=== PATIENT | male | born 1950 | race African-American/Black ===

== ENCOUNTER 2021-05-28 13:28 | Emergency (ER) | payer MEDICARE, OTHER ==
[~2021-05-28] VITALS: Ht 190.5 cm; Wt 172.0 kg
[~2021-05-28 13:28] MED LIST: ALLO300T PO; AMIO200T6 PO; APIX5TAB PO; FURO-69 PO; GLIP10TA13 PO; MAGN400C PO; METO-239 PO; POTASSIUM CHLO10 ME1 PO; PRAV80TA2 PO; SPIR25TA PO
[2021-05-28] MEDS ORDERED: DIPH,PERTUSS(ACELL),TET VAC/PF 0.5 ML SYRINGE. VAX IM ONE ×2 (16:45→17:00)
--- NOTE | 2021-05-28 16:59 | PHYS DOC ---
Past Medical History Past Medical History: A-Fib, CHF, Diabetes-Type II Past Surgical History: No Surgical History, Other Additional Past Surgical Histo: cadiac cath Smoking Status: Never Smoker Alcohol Use: None General Adult EDM: Chief Complaint: LACERATION/AVULSION HPI: HPI: Patient is a 70 year old male who presents with with here for an appointment and was in the hallway with his walker when he tripped and fell. Hitting his left ribs and left forehead on the ground. No loss of consciousness. Patient does take Eliquis. Patient denies chest pain, shortness of breath, abdominal pain, nausea, vomiting, dizziness, headache, focal weakness, numbness or tingling. Patient has a history of CHF, diabetes, cardiac cath. Patient rates his forehead aching pain at a 4 out of 10. Review of Systems: Review of Systems: Constitutional: Denies fever or chills. [] Eyes: Denies change in visual acuity. [] HENT: Denies nasal congestion or sore throat. [] Respiratory: Denies cough or shortness of breath. [] Cardiovascular: Denies chest pain or edema. [] GI: Denies abdominal pain, nausea, vomiting, bloody stools or diarrhea. [] : Denies dysuria. [] Musculoskeletal: Denies back pain or joint pain. + Left rib pain [] Integument: Denies rash. +Left forehead laceration [] Neurologic: Denies headache, focal weakness or sensory changes. [] Endocrine: Denies polyuria or polydipsia. [] Lymphatic: Denies swollen glands. [] Psychiatric: Denies depression or anxiety. [] Heart Score: C/O Chest Pain: No Risk Factors: Risk Factors: DM, Current or recent (<one month) smoker, HTN, HLP, family history of CAD, obesity. Risk Scores: Score 0 - 3: 2.5% MACE over next 6 weeks - Discharge Home Score 4 - 6: 20.3% MACE over next 6 weeks - Admit for Clinical Observation Score 7 - 10: 72.7% MACE over next 6 weeks - Early Invasive Strategies Current Medications: Current Medications Medications (Trade) Dose Ordered Sig/Gerald Start Time Stop Time Status Last Admin Dose Admin Diphtheria/ Tetanus/Acell Pertussis (ADACEL TDap SYRINGE) 0.5 ml STK-MED ONCE 05/28/21 16:45 05/28/21 16:46 DC Lidocaine HCl (Lidocaine 1% 20ml Vial) 20 ml 1X ONCE 05/28/21 17:00 05/28/21 17:01 05/28/21 16:49 20 ML Allergies: Allergies: Allergies Coded Allergies Type Severity Reaction Last Updated Verified No Known Drug Allergies 05/16/16 No Physical Exam: PE: Constitutional: Well developed, well nourished, no acute distress, non-toxic appearance. [] HENT: Normocephalic, atraumatic, bilateral external ears normal, oropharynx moist, no oral exudates, nose normal. [] Eyes: PERRLA, EOMI, conjunctiva normal, no discharge. [] Neck: Normal range of motion, no tenderness, supple, no stridor. [] Cardiovascular:Heart rate regular rhythm, no murmur [] Lungs & Thorax: Bilateral breath sounds clear to auscultation [] Abdomen: Bowel sounds normal, soft, no tenderness, no masses, no pulsatile masses. [] Skin: Warm, dry, no erythema, no rash. Laceration that is 2 inches long to left forehead. [] Back: No tenderness, no CVA tenderness. [] Extremities: No tenderness, no cyanosis, no clubbing, ROM intact, no edema. [] Neurologic: Alert and oriented X 3, normal motor function, normal sensory function, no focal deficits noted. [] Psychologic: Affect normal, judgement normal, mood normal. [] Current Patient Data: Vital Signs: Vital Signs Date Time Temp Pulse Resp B/P (MAP) Pulse Ox O2 Delivery O2 Flow Rate FiO2 05/28/21 16:27 97.8 74 20 197/95 (129) 98 Room Air 97.8 EKG: EKG: [] Radiology/Procedures: Radiology/Procedures: [] Impression: [facility] [address] [place] [address] IMAGING REPORT Signed PATIENT: SHYAM STEEL ACCOUNT: [id number] : 1950 LOCATION: ER AGE: 70 SEX: M EXAM STATUS: REG ER ORD. PHYSICIAN: BAFUS,NANCY M PRODUCE MANAGER REASON: fall, laceration PROCEDURE: CT HEAD AND CERVICAL SPINE WO EXAM: Head and cervical spine CT without contrast. HISTORY: Fall. Laceration. TECHNIQUE: Computed tomographic images of the head and cervical spine were obtained without contrast. *One or more of the following individualized dose reduction techniques were utilized for this examination: 1. Automated exposure control. 2. Adjustment of the mA and/or kV according to patient size. 3. Use of iterative reconstruction technique. COMPARISON: None. FINDINGS: Head: There is a small inferior left frontal scalp soft tissue hematoma with laceration. There is associated soft tissue gas. No foreign body or underlying fracture is seen. There is no acute intracranial hemorrhage. There is no mass effect or midline shift. There is no hydrocephalus. There is hypodensity within the left frontal lobe likely due to encephalomalacia from chronic infarction. There are white matter changes due to chronic small vessel disease. There is evidence of right lens surgery. The paranasal sinuses mastoid air cells are clear. There is no suspicious calvarial lesion. Cervical spine: There is cervical curvature due to thoracic kyphoscoliosis. There is mild multilevel degenerative listhesis. There is endplate remodeling and there are chronic endplate depressions at multiple levels. There is advanced facet and uncovertebral arthropathy. There is no convincing acute fracture or suspicious osseous lesion. There is bone demineralization. The combination of degenerative changes results in severe right and moderate left foraminal and mild central canal stenosis at C3-C4, severe right and moderate left foraminal stenosis at C4-C5, severe right and moderate left foraminal stenosis at C5-C6, and mild right foraminal stenosis at C6-C7. IMPRESSION: 1. Inferior left frontal scalp soft tissue hematoma and laceration with associated soft tissue gas. No foreign body or underlying fracture is seen. 2. No acute intracranial finding or evidence of acute cervical spine trauma. 3. Suspected chronic infarct within the left frontal lobe superimposed on bilateral white matter changes due to chronic small vessel disease. 4. Multilevel advanced degenerative change involving the cervical spine, resulting in significant stenosis at the aforementioned levels. Electronically signed by: Addie Mcguire MD (05/28/2021 5:26 PM) [id number] DICTATED and SIGNED BY: ADDIE MCGUIRE MD DATE: 05/28/21 [id number] [facility] [address] [place] [address] IMAGING REPORT Signed PATIENT: SHYAM STEEL ACCOUNT: [id number] : 1950 LOCATION: ER AGE: 70 SEX: M EXAM STATUS: REG ER ORD. PHYSICIAN: NANCY CHANEY APRN REASON: pain after fall PROCEDURE: RIBS LEFT AND PA CHEST XR RIBS MIN 3 VIEWS LT W/PA CHEST History: Reason: pain after fall / Spl. Instructions: / History: Technique: AP view the chest and additional views of the left ribs. Comparison: None. Findings: Patchy mid and bibasilar opacities. No pleural effusion. No pneumothorax. Normal heart size. Age indeterminant right anterior rib fracture. Impression: 1. Patchy mid and bibasilar opacities, likely atelectasis. 2. Age-indeterminate left anterior ninth rib fracture. Correlate with point tenderness. Electronically signed by: Isiah Keith DO (05/28/2021 5:35 PM) [facility] DICTATED and SIGNED BY: ISIAH KEITH DO DATE: 05/28/21 [id number] 0 Course & Med Decision Making: Course & Med Decision Making Pertinent Labs and Imaging studies reviewed. (See chart for details) See HPI. Alert and oriented x4. Ambulatory with a walker. Speaks in full clear sentences. Skin pink warm and dry. Moving all extremities equally normally. No focal bony spinal tenderness. Full range of motion of his neck. No rib pain with palpation or crepitus or subcutaneous emphysema. He states it mostly hurts with moving arms. CT showed no acute findings. X-ray shows atelectasis and a chronic rib fracture on the left. Patient will be given a incentive spirometer and follow-up primary care. Laceration repair Location: Left forehead 2 inches and half a centimeter depth. Local anesthesia: Percent lidocaine Interrupted sutures/Internal sutures: 14 sutures Nerve/ligament/muscle damage: None Cleaning and irrigation: Chlorhexidine and saline The appropriate timeout was taken. The area was prepped and draped in the usual sterile fashion. The wound was copiously irrigated with normal saline and chlorhexidine. Patient tolerated well without complication. Dressing was applied to the area follow-up education is given to observe for signs and symptoms of infection, bleeding and to follow-up promptly if these occur. Patient can return in 48 hours for a wound recheck. Sutures to be removed in 7 to 10 days. [] Regulo Disclaimer: Regulo Disclaimer: This electronic medical record was generated, in whole or in part, using a voice recognition dictation system. Departure Departure Impression: Primary Impression: Laceration Additional Impression: Rib pain on left side Disposition: HOME / SELF CARE / HOMELESS Condition: STABLE Referrals: TAHIRA KWON MD (PCP) Patient Instructions: Facial Laceration, Incentive Spirometer, Laceration Care, Adult Additional Instructions: Follow-up with your primary care provider soon as possible. Take Tylenol for any pain. Use ice or heating pad to help with any pain. If you begin having a severe headache with vomiting and dizziness need to return to the ED. Sutures need to be removed in 10 days. Scripts Cephalexin (CEPHALEXIN) 500 Mg Capsule 1 CAP PO TID, #30 CAP Prov: NANCY CHANEY APRN 05/28/21 NANCY CHANEY APRN May 28, 2021 16:59
[2021-05-28] MEDS ORDERED: LIDOCAINE 1% Multi-Dose 20 ML VIAL. INJ ONE (17:00)
--- NOTE | 2021-05-28 17:29 | RAD ---
EXAM: Head and cervical spine CT without contrast. HISTORY: Fall. Laceration. TECHNIQUE: Computed tomographic images of the head and cervical spine were obtained without contrast. *One or more of the following individualized dose reduction techniques were utilized for this examina tion: 1. Automated exposure control. 2. Adjustment of the mA and/or kV according to patient size. 3. Use of iterative reconstruction technique. COMPARISON: None. FINDINGS: Head: There is a small inferior left frontal scalp soft tissue hematoma with laceration. There is ass ociated soft tissue gas. No foreign body or underlying fracture is seen. There is no acute intracrani al hemorrhage. There is no mass effect or midline shift. There is no hydrocephalus. There is hypodens ity within the left frontal lobe likely due to encephalomalacia from chronic infarction. There are wh ite matter changes due to chronic small vessel disease. There is evidence of right lens surgery. The paranasal sinuses mastoid air cells are clear. There is no suspicious calvarial lesion. Cervical spine: There is cervical curvature due to thoracic kyphoscoliosis. There is mild multilevel degenerative listhesis. There is endplate remodeling and there are chronic endplate depressions at mu ltiple levels. There is advanced facet and uncovertebral arthropathy. There is no convincing acute fr acture or suspicious osseous lesion. There is bone demineralization. The combination of degenerative changes results in severe right and moderate left foraminal and mild central canal stenosis at C3-C4, severe right and moderate left foraminal stenosis at C4-C5, severe right and moderate left foraminal stenosis at C5-C6, and mild right foraminal stenosis at C6-C7. IMPRESSION: 1. Inferior left frontal scalp soft tissue hematoma and laceration with associated soft tissue gas. N o foreign body or underlying fracture is seen. 2. No acute intracranial finding or evidence of acute cervical spine trauma. 3. Suspected chronic infarct within the left frontal lobe superimposed on bilateral white matter [place] due to chronic small vessel disease. 4. Multilevel advanced degenerative change involving the cervical spine, resulting in significant kathi nosis at the aforementioned levels. Electronically signed by: Addie Bravo MD (05/28/2021 5:26 PM) [id number]
--- NOTE | 2021-05-28 17:37 | RAD ---
XR RIBS MIN 3 VIEWS LT W/PA CHEST History: Reason: pain after fall / Spl. Instructions: / History: Technique: AP view the chest and additional views of the left ribs. Comparison: None. Findings: Patchy mid and bibasilar opacities. No pleural effusion. No pneumothorax. Normal heart size. Age indeterminant right anterior rib fracture. Impression: 1. Patchy mid and bibasilar opacities, likely atelectasis. 2. Age-indeterminate left anterior ninth rib fracture. Correlate with point tenderness. Electronically signed by: Isiah Keith DO (05/28/2021 5:35 PM) [facility]
[2021-05-28 18:30] VITALS: BP 192/93
[2021-05-28] MEDS ORDERED: CEPH500C PO (19:15)
== END 2021-05-28 19:35 | disposition home or self-care (01) ==
LOC: ER 13:28
DX: S01.81XA Laceration without foreign body of other part of head, initial encounter (principal); R07.81 Pleurodynia; E11.9 Type 2 diabetes mellitus without complications; I48.91 Unspecified atrial fibrillation; Z86.79 Personal history of other diseases of the circulatory system; W01.0XXA Fall on same level from slipping, tripping and stumbling without subsequent striking against object, initial encounter; Y93.89 Activity, other specified; Y92.89 Other specified places as the place of occurrence of the external cause; Y99.8 Other external cause status
CPT/HCPCS: 12014; 70450; 71101; 72125; 90471; 90715; 99284; J3490